=== PATIENT | female | born 1970 | race Caucasian/White ===

== ENCOUNTER 2021-02-17 13:57 | Emergency (ER) | payer BC ==
[~2021-02-17] VITALS: Ht 162.6 cm; Wt 63.6 kg
[2021-02-17 14:01] VITALS: BP 126/81
[2021-02-17] MEDS ORDERED: DEXA6TAB6 PO (15:48)
[2021-02-17] MEDS ORDERED: dexamethasone 4mg tablet PO ONE (15:50)
== END 2021-02-17 16:01 | disposition home or self-care (01) ==
LOC: ER 13:58
DX: U07.1 COVID-19 (principal); J02.9 Acute pharyngitis, unspecified; R19.7 Diarrhea, unspecified; R05.9 Cough, unspecified; J45.909 Unspecified asthma, uncomplicated; Z88.0 Allergy status to penicillin; Z79.899 Other long term (current) drug therapy
CPT/HCPCS: 87635; 99283; C9803